=== PATIENT | male | born 1995 | race Caucasian/White ===

== ENCOUNTER 2017-10-13 21:31 | Emergency (ER) | payer BC ==
[2017-10-13] MEDS: IPRATRPIUM/ALBUTEROL 0.5/2.5MG 3 ML NEBU. NEB (22:43)
== END 2017-10-13 23:17 | disposition home or self-care (01) ==
LOC: ER 21:31
DX: R05 Cough (principal); R06.2 Wheezing; R06.02 Shortness of breath; J45.909 Unspecified asthma, uncomplicated
CPT/HCPCS: 71046; 94640; 99284-25; J7620